=== PATIENT | male | born 1980 | race Caucasian/White ===

== ENCOUNTER 2021-06-12 17:06 | Emergency (ER) | payer BC, OTHER ==
--- NOTE | 2021-06-12 19:34 | ER ---
Nurse's Notes [facility] Name: Jesús Hebert Age: 40 yrs Sex: Male : 1980 Arrival Date: 06/12/2021 Time: 17:11 Bed Waiting Private MD: Diagnosis: Assessment: 06/12 18:24 Reassessment: Called to triage twice. No answer. Unable to locate patient. ss ED Course: 17:11 Patient arrived in ED. mr 17:13 Jesús Musa MD is Attending Physician. kdr Administered Medications: No medications were administered Outcome: 19:30 Eloped from waiting room. ss 19:30 unknown 19:33 Patient left the ED. Signatures: Jesús Musa MD MD [facility] Lili Post Shelby, RN RN ss
== END 2021-06-12 19:33 | disposition left against medical advice (07) ==
LOC: ER 17:06
DX: Z02.9 Encounter for administrative examinations, unspecified (principal)

== ENCOUNTER 2025-01-07 18:18 | Emergency (ER) | payer BC ==
[2025-01-07 20:14] LABS: Absolute Basophils 0.1 K/uL (0-0.5); Absolute Lymphocytes (CBC) 2.6 K/uL (0.7-4.9); Absolute Monocytes 0.4 K/uL (0.1-1.3); Absolute Neutrophil 2.5 K/uL (1.8-8.0); Basophils % 0.9 % (0-1.3); Eosinophils % 0.7 % (0-4.4); Hematocrit 44.4 % (39.6-49.0); Hemoglobin 15.1 g/dL (13.6-17.9); Lymphocytes % 45.8 % (15.3-44.8); MCH 30.1 pg (27.0-35.0); MCV 88.3 fL (80-100); MPV 7.5 fL (7.6-11.3); Monocytes % 7.9 % (3.3-12.3); Neutrophils % 44.7 % (41.7-73.7); Nucleated Red Blood Cells % 0.1 % (0-0); Platelets 242 thou/uL (152-406); RBC Red Blood Cell Count 5.02 M/uL (4.33-5.43); Red Cell Distribution Width 13.4 % (12.1-15.2)
[2025-01-07 20:24] LABS: PTT, Activated Partial Thromb 32.2 SECONDS (27.2-37.4); Protime INR 1.06
[2025-01-07 20:31] LABS: Albumin 4.1 g/dL (3.4-5.0); Albumin/Globulin Ratio 1.2 (1.1-1.8); Anion Gap 7.9 mEq/L (5.0-15.0); Bilirubin Total 0.5 mg/dL (0.2-1.0); Globulin 3.4 g/dL (2.3-3.5); Potassium 3.9 mEq/L (3.5-5.1); Protein, Total 7.5 g/dL (6.4-8.2)
--- NOTE | 2025-01-07 20:37 | RAD REPORT ---
EXAMINATION: CT ABDOMEN AND PELVIS WITH CONTRAST CLINICAL INDICATION: Abdominal pain TECHNIQUE: CT abdomen and pelvis was performed, after the administration of 100 cc Isovue-300.. Sagit tim and coronal reconstructions were obtained. One or more of the following dose reduction techniques were used: Automated exposure control, adjustment of the mA and kV according to patient si ze, and iterative reconstruction. Unless otherwise specified, incidental findings do not require dedicated imaging follow-up. [id number]. Oral contrast was not given which limits evaluation of bowel and appendix. COMPARISON: .None FINDINGS: The liver, pancreas, adrenals and left kidney unremarkable Small right renal cyst 1.1 cm low-density density lesion spleen Hounsfield unit 33. Diverticula stem from colon. Mild stranding adjacent to the sigmoid colon. No abscess. No free air. Normal appendix. Tiny umbilical hernia : IMPRESSION: Mild sigmoid diverticulitis 1.1 cm splenic lesion does not represent a simple cyst. Most likely it is benign. Follow-up ultrasoun d in 3 months recommended
--- NOTE | 2025-01-07 21:47 | EDPHYS ---
Physician Documentation [facility] Name: Jesús Hebert Age: 44 yrs Sex: Male : 1980 Arrival Date: 01/07/2025 Time: 18:18 Bed 11 Private MD: ED Physician Jose Alberto Perry HPI: 01/07 18:46 This 44 yrs old Male presents to ER via Ambulatory with complaints of Abdominal Pain. kb 18:46 Pt is a 44 year old male who presents for nausea and lower abd pain that started 3 days kb ago. States he had diverticulitis with a 1.4cm abscess on 12/27. Pt was transferred to [facility] and given zosyn Q 6 hours. States the abscess was too small for surgical intervention. Has repeat CT and labs scheduled for the end of the week, but pain returned and it seems similar to previous so he called his PCP and they recommended coming to ER for evaluation. . Historical: - Allergies: 18:29 No Known Allergies; hb - Immunization history:: Adult Immunizations up to date. - Infectious Disease History:: Denies. - Social history:: Smoking status: Patient denies any tobacco usage or history of. ROS: 18:46 Constitutional: As per HPI kb Exam: 18:46 Constitutional: This is a well developed, well nourished patient who is awake, alert, kb and in no acute distress. Head/Face: Normocephalic, atraumatic. ENT: Moist Mucous membranes Cardiovascular: Regular rate Respiratory: Respirations even and unlabored. No increased work of breathing. Talking in full sentences Skin: Warm, dry with normal turgor. Normal color. MS/ Extremity: Pulses equal, no cyanosis. Neurovascular intact. Full, normal range of motion. Neuro: Awake and alert, GCS 15, oriented to person, place, time, and situation. 18:46 Abdomen/GI: Inspection: abdomen appears normal, Bowel sounds: normal, Palpation: soft, in all quadrants, mild abdominal tenderness, in the right lower quadrant, moderate abdominal tenderness, in the left lower quadrant, Vital Signs: 18:27 BP 136 / 93; Pulse 88; Resp 16; Temp 98.6(O); Pulse Ox 100% on R/A; Weight 82.55 kg; hb Height 5 ft. 7 in. ; Pain 6/10; 20:30 BP 134 / 84; Pulse 78; Resp 16; Pulse Ox 98% ; me1 21:55 BP 132 / 91; Pulse 86; Resp 15; Temp 98.4; Pulse Ox 100% ; me1 18:27 Body Mass Index 28.50 (82.55 kg, 170.18 cm) hb 18:27 Pain Scale: Adult hb MDM: 18:23 Medical Screening Exam initiated kb 18:46 Data reviewed: vital signs, nurses notes. kb 21:44 Differential diagnosis: diverticulitis, non-specific abd pain. Historians other than sabnia the Patient: Spouse/Significant Other: . External Records Reviewed: Inpatient record: labs from [facility] reviewed on [facility] my chart. Outside ED record: CT report from [facility] reviewed. Counseling: I had a detailed discussion with the patient and/or guardian regarding the historical points, exam findings, and any diagnostic results supporting the discharge/admit diagnosis, lab results, radiology results, the need for outpatient follow up, a family practitioner, to return to the emergency department if symptoms worsen or persist or if there are any questions or concerns that arise at home. ED course: Diverticulitis improving, abscess resolved. Pt educated to continue antibiotics as prescribed and follow up with Dr Cartagena as planned. 01/07 18:33 Order name: Blood Culture Adult (2) kb 01/07 18:33 Order name: CBC with Diff; Complete Time: 20:30 kb 01/07 18:33 Order name: CMP; Complete Time: 20:34 kb 01/07 18:33 Order name: Lactate w/ 2H reflex if indic.; Complete Time: 20:35 kb 01/07 18:33 Order name: Protime (+inr); Complete Time: 20:30 kb 01/07 18:33 Order name: Ptt, Activated; Complete Time: 20:30 kb 01/07 18:33 Order name: CT Abd/Pelvis - IV Contrast Only; Complete Time: 20:41 kb 01/07 18:33 Order name: IV Saline Lock - Large Bore; Complete Time: 20:06 kb 01/07 18:33 Order name: Labs collected and sent; Complete Time: 20:06 kb 01/07 18:33 Order name: O2 Per Protocol; Complete Time: 20:06 kb 01/07 18:33 Order name: O2 Sat Monitoring; Complete Time: 20:06 kb 01/07 18:33 Order name: Vital Signs; Complete Time: 20:06 kb Administered Medications: No medications were administered Disposition Summary: 01/07/25 21:46 Discharge Ordered Notes: Location: Home kb Condition: Stable kb Diagnosis - Diverticulitis of intestine, part unspecified, without perforation or abscess kb without bleeding Followup: kb - With: Private Physician - When: 2 - 3 days - Reason: Recheck today's complaints, Continuance of care, Re-evaluation by your physician Followup: kb - With: Emergency Department - When: As needed - Reason: Worsening of condition Discharge Instructions: - Discharge Summary Sheet kb - Diverticulitis, [id number] kb Forms: - Medication Reconciliation Form kb - Antibiotic Education kb - Prescription Opioid Use kb - Patient Portal Instructions kb - Leadership Thank You Letter kb - Work release form me1 Signatures: Dispatcher [employer] Rosa Isela Rahmna, DOCUMENT CONTROL SUPERVISOR-C DOCUMENT CONTROL SUPERVISOR-Mary Lou James RN RN Corrections: (The following items were deleted from the chart) 18:34 18:34 BLOOD CULTURE*+BA.LAB.BRZ ordered. EDMS EDMS 18:34 18:34 CBC+H.LAB.BRZ ordered. EDMS EDMS 18:34 18:34 COMPREHENSIVE METABOLIC PANEL+C.LAB.BRZ ordered. EDMS EDMS 18:34 18:34 LACTATE+C.LAB.BRZ ordered. EDMS EDMS 18:34 18:34 PROTIME (+INR)+COAG.LAB.BRZ ordered. EDMS EDMS 18:34 18:34 PTT, ACTIVATED+COAG.LAB.BRZ ordered. EDMS EDMS
--- NOTE | 2025-01-07 21:47 | ER ---
Nurse's Notes [facility] Name: Jesús Hebert Age: 44 yrs Sex: Male : 1980 Arrival Date: 01/07/2025 Time: 18:18 Bed 11 Private MD: Diagnosis: Diverticulitis of intestine, part unspecified, without perforation or abscess without bleeding Presentation: 01/07 18:27 Chief complaint: Sent by Osiel Alfredo for abdominal pain. Hospitalized [facility] for hb diverticulitis and abscess on colon 3 weeks ago, still on ABX but feels like pain is getting worse. Coronavirus screen: At this time, the client does not indicate any symptoms associated with coronavirus-19. Ebola Screen: No symptoms or risks identified at this time. Initial Sepsis Screen: Does the patient meet any 2 criteria? No. Patient's initial sepsis screen is negative. Does the patient have a suspected source of infection? No. Patient's initial sepsis screen is negative. Risk Assessment: Do you want to hurt yourself or someone else? Patient reports no desire to harm self or others. Onset of symptoms was December 12, 2024. 18:27 Method Of Arrival: Ambulatory hb 18:27 Acuity: AIXA 3 hb Historical: - Allergies: 18:29 No Known Allergies; hb - Immunization history:: Adult Immunizations up to date. - Infectious Disease History:: Denies. - Social history:: Smoking status: Patient denies any tobacco usage or history of. Screenin:15 [facility] ED Fall Risk Assessment (Adult) History of falling in the last 3 months, me1 including since admission No falls in past 3 months (0 pts) Confusion or Disorientation No (0 pts) Intoxicated or Sedated No (0 pts) Impaired Gait No (0 pts) Mobility Assist Device Used No (0 pt) Altered Elimination No (0 pt) Score/Fall Risk Level 0 - 2 = Low Risk Maintained a safe environment, Provided non-skid footwear, Hourly rounding (assess needs \T\ fall precautionary measures) done. Abuse screen: Denies threats or abuse. Nutritional screening: No deficits noted. Tuberculosis screening: No symptoms or risk factors identified. Assessment: 19:15 General: Appears in no apparent distress. well groomed, well developed, well nourished, me1 Behavior is calm, cooperative, appropriate for age, Reports Sent by Osiel Alfredo for abdominal pain. Hospitalized [facility] for diverticulitis and abscess on colon 3 weeks ago, still on ABX but feels like pain is getting worse. Pain: Complains of pain in right lower quadrant and left lower quadrant Pain does not radiate. Pain currently is 5 out of 10 on a pain scale. Quality of pain is described as crampy, sharp, Pain began gradually, Is continuous. Neuro: Level of Consciousness is awake, alert, obeys commands, Oriented to person, place, time, situation, Appropriate for age. Cardiovascular: Patient's skin is warm and dry. Respiratory: Airway is patent Respiratory effort is even, unlabored, Respiratory pattern is regular, symmetrical. GI: Bowel sounds present X 4 quads. Abd is soft X 4 quads Reports lower abdominal pain. : No signs and/or symptoms were reported regarding the genitourinary system. EENT: No signs and/or symptoms were reported regarding the EENT system. Derm: Skin is intact, is healthy with good turgor, Skin is pink, warm \T\ dry. Musculoskeletal: No signs and/or symptoms reported regarding the musculoskeletal system. Vital Signs: 18:27 BP 136 / 93; Pulse 88; Resp 16; Temp 98.6(O); Pulse Ox 100% on R/A; Weight 82.55 kg; hb Height 5 ft. 7 in. ; Pain 6/10; 20:30 BP 134 / 84; Pulse 78; Resp 16; Pulse Ox 98% ; me1 21:55 BP 132 / 91; Pulse 86; Resp 15; Temp 98.4; Pulse Ox 100% ; me1 18:27 Body Mass Index 28.50 (82.55 kg, 170.18 cm) hb 18:27 Pain Scale: Adult hb ED Course: 18:20 Patient arrived in ED. al6 18:23 Rosa Isela Ventura [facility]C [facility] kb 18:23 Jose Alberto Perry MD is Attending Physician. kb 18:29 Triage completed. hb 18:30 Arm band placed on. hb 19:09 Radiology exam delayed due to lab results not completed at this time. IV insertion jc4 attempt and/or patient not having appropriate IV at this time. 19:11 Kimberly Cota, RN is Primary Nurse. me1 19:15 Patient has correct armband on for positive identification. Bed in low position. Call me1 light in reach. Side rails up X 1. Provided Education on: POC. Verbalized understanding. Client placed on continuous cardiac and pulse oximetry monitoring. NIBP monitoring applied. Pulse ox on. NIBP on. 19:15 No provider procedures requiring assistance completed. me1 20:00 Initial lab(s) drawn, by me, sent to lab. First set of blood cultures drawn by me. me1 20:05 Inserted saline lock: 22 gauge in left antecubital area, using aseptic technique. me1 20:06 CBC with Diff Sent. me1 20:06 CMP Sent. me1 20:06 Lactate w/ 2H reflex if indic. Sent. me1 20:06 Protime (+inr) Sent. me1 20:06 Ptt, Activated Sent. me1 20:11 Second set of blood cultures drawn by me. me1 20:15 CT Abd/Pelvis - IV Contrast Only In Process Unspecified. EDMS 21:55 IV discontinued, intact, bleeding controlled, No redness/swelling at site. Pressure id1 dressing applied. Administered Medications: No medications were administered Medication: 19:15 VIS not applicable for this client. me1 Outcome: 21:46 Discharge ordered by . kb 21:55 Discharged to home ambulatory, with significant other, me1 21:55 Condition: stable 21:55 Discharge instructions given to patient, significant other, Instructed on discharge instructions, follow up and referral plans. Demonstrated understanding of instructions, follow-up care, 21:56 Patient left the ED. id1 Signatures: Dispatcher [employer] EDNY Rosa Isela Ventura, RIGGING SLINGER-C RIGGING SLINGER-Ckb Mary Lou Infante RN RN Kimberly Cota RN RN id1 Eric Solano [email or web address] Tenisha Singleton6 Corrections: (The following items were deleted from the chart) 18:32 18:27 Chief complaint: Sent by Osiel Alfredo for abdominal pain. Hospitalized [facility] for hb diverticulitis and abscess on colon 3 weeks ago, on ABX but feels like pain is getting worse. hb 20:11 18:27 Chief complaint: Sent by Osiel Alfredo for abdominal pain. Hospitalized [facility] for me1 diverticulitis and abscess on colon 3 weeks ago, still on ABX but feels like pain is getting worse. hb
[2025-01-07 22:43] VITALS: BP 132/91; TEMP 98.4; O2SAT 100
== END 2025-01-07 21:56 | disposition home or self-care (01) ==
LOC: ER 18:18
DX: K57.32 Diverticulitis of large intestine without perforation or abscess without bleeding (principal)
CPT/HCPCS: 87040 ×2; 85025; 36415; 85610; 82565; 83605; 85730; 80053; 74177; 99284; Q9967

== ENCOUNTER 2025-08-29 23:24 | Emergency (ER) | payer BC ==
[2025-08-29] MEDS ORDERED: ONDANSETRON 4 MG/2 ML VIAL ONE (23:35)
[2025-08-29] MEDS ORDERED: KETOROLAC 30 MG/ML INJ ONE (23:35)
[2025-08-29] MEDS ORDERED: NA CHLORIDE 0.9% 1,000 ML ONE (23:36)
[2025-08-30 00:50] LABS: Absolute Lymphocytes (CBC) 2.8 K/uL (0.7-4.9); Hematocrit 43.9 % (39.6-49.0); Hemoglobin 15.2 g/dL (13.6-17.9); MCH 30.0 pg (27.0-35.0); MCHC 34.5 g/dL (32.0-36.0); MCV 86.8 fL (80-100); MPV 7.9 fL (7.6-11.3); Nucleated RBC Absolute Count 0.0 (0-0); Nucleated Red Blood Cells % 0.0 % (0-0); RBC Red Blood Cell Count 5.06 M/uL (4.33-5.43); White Blood Count 5.90 thou/uL (4.3-10.9)
[2025-08-30 01:24] LABS: ALT/SGPT 19.0 U/L (16-61); AST/SGOT 18.0 U/L (15-37); Albumin 4.1 g/dL (3.4-5.0); Albumin/Globulin Ratio 1.1 (1.1-1.8); Alkaline Phosphatase 72.0 U/L (45-117); Anion Gap 11.7 mEq/L (5.0-15.0); BUN Blood Urea Nitrogen 9.0 mg/dL (7-18); Globulin 3.8 g/dL (2.3-3.5); Glucose Level 82.0 mg/dL (74-106); Lipase 27.0 U/L (13-75); Potassium 3.7 mEq/L (3.5-5.1)
--- NOTE | 2025-08-30 03:32 | RAD REPORT ---
CT ABDOMEN PELVIS WITH IV CONTRAST Exam date: August 30, 2025 Comparison: CT abdomen pelvis April 25, 2025 Indication: Abdominal pain Technique: Multiple helical axial images were obtained through the abdomen and pelvis using intravenous contrast . Coronal and sagittal reformatted images were obtained. All CT scans at this facility use dose modulation, iterative reconstruction, and/or weight-based dosi ng when appropriate to reduce radiation dose to as low as reasonably achievable. Findings: Lung bases: [Appear unremarkable]. Liver: [There is low attenuation suggesting fatty changes.] Gallbladder/biliary: [Appears unremarkable] Pancreas: [Unremarkable. No evidence of ductal enlargement.] Spleen: A 0.8 cm hypodense structure in the spleen is unchanged. No splenomegaly. Adrenals: Unremarkable. Kidneys and ureters: [No evidence of hydronephrosis. Normal enhancement.] A few cysts in the right kidney noted measuring up to 1.2 cm. Bladder: Unremarkable. Pelvic organs: Unremarkable. Bowel: [Colonic diverticula are present. No evidence of bowel obstruction. No bowel wall thickening .] Appendix appears unremarkable. Vasculature: Mild aortic atherosclerosis noted. Peritoneum: No free air. No significant free fluid. Lymph nodes: Unremarkable. Soft tissues: Unremarkable. Bones: Disc space narrowing and mild osteophyte formation at L5-S1 noted. Impression: 1. No evidence for an acute process within the abdomen or pelvis. 2. Hepatic steatosis. 3. Colonic diverticulosis. Electronically signed by: Eric Palma MD 08/30/2025 03:26 AM CDT Due to temporary technical issues with the [employer] reporting system, reports are being salo d by the in-house radiologist without review as a courtesy to ensure prompt reporting the interpreting radiologist is fully responsible for the content of the report. Transcribed Date/Time: 08/30/2025 3:32 AM
--- NOTE | 2025-08-30 03:51 | ER ---
Nurse's Notes [facility] Name: Jesús Hebert Age: 45 yrs Sex: Male : 1980 Arrival Date: 08/29/2025 Time: 23:24 Bed 17 Private MD: Diagnosis: Diverticulosis of intestine, part unspecified, without perforation or abscess without bleeding Presentation: 08/29 23:29 Chief complaint: Patient states: LEFT LOWER QUADRANT ABDOMINAL PAIN AND NAUSEA. ha1 23:29 Coronavirus screen: Client denies travel out of the [place] in the last 14 days. Ebola ha1 Screen: No symptoms or risks identified at this time. Initial Sepsis Screen: Does the patient meet any 2 criteria? No. Patient's initial sepsis screen is negative. Does the patient have a suspected source of infection? No. Patient's initial sepsis screen is negative. Risk Assessment: Do you want to hurt yourself or someone else? Patient reports no desire to harm self or others. Onset of symptoms was August 29, 2025. 23:29 Method Of Arrival: Ambulatory ha1 23:29 Acuity: AIXA 3 ha1 Triage Assessment: 23:42 General: Appears uncomfortable, Behavior is calm, cooperative. Pain: Complains of pain ha1 in left lower quadrant Pain currently is 5 out of 10 on a pain scale. Quality of pain is described as aching. Neuro: Level of Consciousness is awake, alert, obeys commands, Oriented to person, place, time, situation. Cardiovascular: Capillary refill < 3 seconds Patient's skin is warm and dry. Respiratory: Airway is patent Respiratory effort is even, unlabored, Respiratory pattern is regular, symmetrical. GI: Abdomen is round Reports lower abdominal pain, nausea. : No signs and/or symptoms were reported regarding the genitourinary system. Derm: Skin is normal. Musculoskeletal: Circulation, motion, and sensation intact. Range of motion: intact in all extremities. Historical: - Allergies: 23:42 No Known Allergies; ha1 - PMHx: 23:42 Diverticulitis; ha1 - PSHx: 23:42 Vasectomy; ha1 - Immunization history:: Adult Immunizations up to date. - Infectious Disease History:: Denies. - Social history:: Smoking status: Patient denies any tobacco usage or history of. Screenin/31 01:16 [facility] ED Fall Risk Assessment (Adult) History of falling in the last 3 months, tb4 including since admission No falls in past 3 months (0 pts) Confusion or Disorientation No (0 pts) Intoxicated or Sedated No (0 pts) Impaired Gait No (0 pts) Mobility Assist Device Used No (0 pt) Altered Elimination No (0 pt) Score/Fall Risk Level 0 - 2 = Low Risk Maintained a safe environment. Abuse screen: Denies threats or abuse. Denies injuries from another. Nutritional screening: No deficits noted. Tuberculosis screening: No symptoms or risk factors identified. Assessment: 00:51 Reassessment: Patient walked to restroom. tb4 02:43 General: Appears comfortable, Behavior is calm, cooperative. Pain: Complains of pain in tb4 left lower quadrant Pain does not radiate. Pain currently is 2 out of 10 on a pain scale. Quality of pain is described as aching, Pain began gradually, 2-3 days ago. Neuro: Level of Consciousness is awake, alert, obeys commands, Oriented to person, place, time, situation, Pantographer are equal bilaterally Gait is steady, Speech is normal. Cardiovascular: Patient's skin is warm and dry. Respiratory: Airway is patent Respiratory effort is even, unlabored, Respiratory pattern is regular, symmetrical. GI: Bowel sounds present X 4 quads. Abd is soft Abdomen is tender to palpation in left lower quadrant Reports nausea, Pain is 7 out of 10 on a pain scale. : No deficits noted. No signs and/or symptoms were reported regarding the genitourinary system. EENT: No deficits noted. No signs and/or symptoms were reported regarding the EENT system. Derm: No deficits noted. No signs and/or symptoms reported regarding the dermatologic system. Skin is intact, is healthy with good turgor, Skin is dry, Skin is normal. Musculoskeletal: No deficits noted. No signs and/or symptoms reported regarding the musculoskeletal system. Circulation, motion, and sensation intact. Range of motion: intact in all extremities. Vital Signs: 08/29 23:29 BP 123 / 78; Pulse 65; Resp 18 S; Temp 97.6; Pulse Ox 100% on R/A; Weight 77.11 kg; ha1 Height 5 ft. 7 in. ; Pain 5/10; 23:49 BP 117 / 75; Pulse 74; Resp 20; Pulse Ox 99% on R/A; tb4 08/30 00:54 BP 122 / 79; Pulse 64; Resp 19; Pulse Ox 100% on R/A; tb4 02:00 BP 138 / 75; Pulse 82; Resp 20; Temp 98.4(O); Pulse Ox 98% on R/A; Pain 3/10; tb4 03:00 BP 129 / 61; Pulse 77; Resp 18; Pulse Ox 98% on R/A; tb4 04:00 BP 131 / 72; Pulse 81; Resp 17; Pulse Ox 100% on R/A; Pain 0/10; tb4 04:32 BP 133 / 71; Pulse 89; Resp 20; Pulse Ox 99% on R/A; Pain 0/10; tb4 08/29 23:29 Body Mass Index 26.63 (77.11 kg, 170.18 cm) ha1 08/29 23:29 Pain Scale: Adult ha1 02:00 Pain Scale: Adult tb4 04:00 Pain Scale: Adult tb4 04:32 Pain Scale: Adult tb4 ED Course: 08/29 23:27 Patient arrived in ED. im 23:31 Jose Alberto Blanco PA-C is PHCP. cp 23:31 Cam Gomez MD is Attending Physician. cp 23:42 Triage completed. ha1 08/30 00:19 Inserted saline lock: 20 gauge in left antecubital area, using aseptic technique. Blood tb4 collected. Flushed with 10 mL NS. 01:17 Patient has correct armband on for positive identification. Bed in low position. Call tb4 light in reach. Side rails up X 1. Adult w/ patient. Client placed on continuous cardiac and pulse oximetry monitoring. NIBP monitoring applied. Pulse ox on. Door closed. Lights dimmed. 01:17 No provider procedures requiring assistance completed. Initial lab(s) drawn, by ED tb4 staff, sent to lab. 01:21 Arm band placed on right wrist. tb4 01:49 CT Abd/Pelvis - IV Contrast Only In Process Unspecified. EDMS 03:50 Meena Cartagena MD is Referral Physician. cp 04:23 Provided Education on: Take medication as prescribed an follow up with primary care. tb4 04:30 IV discontinued, intact, bleeding controlled, No redness/swelling at site. Pressure tb4 dressing applied. Administered Medications: 00:24 Drug: NS 0.9% IV 1000 ml IV at 1 bolus Per protocol; to be given as a bolus over 60 tb4 minutes Route: IV; Rate: 1 bolus; Site: left antecubital; 02:42 Follow up: Response: No adverse reaction; IV Status: Completed infusion tb4 00:25 Drug: TORadol - Ketorolac IVP 15 mg IVP once Route: IVP; Site: left antecubital; tb4 02:42 Follow up: Response: No adverse reaction; Pain is decreased tb4 00:25 Drug: Ondansetron IVP 4 mg IVP once; over 2 minutes Route: IVP; Site: left antecubital; tb4 02:43 Follow up: Response: No adverse reaction; Nausea is decreased tb4 04:20 Drug: Ciprofloxacin PO 500 mg PO once Route: PO; tb4 04:30 Follow up: Response: No adverse reaction ha1 04:52 Follow up: Response: No adverse reaction tb4 04:20 Drug: metroNIDAZOLE PO 500 mg PO once Route: PO; tb4 04:30 Follow up: Response: No adverse reaction ha1 04:52 Follow up: Response: No adverse reaction tb4 Medication: 01:16 VIS not applicable for this client. tb4 Outcome: 03:50 Discharge ordered by MD. cp 04:38 Discharged to home ambulatory, ha1 04:38 Condition: stable 04:38 Discharge instructions given to patient, Instructed on discharge instructions, follow up and referral plans. medication usage, Demonstrated understanding of instructions, follow-up care, medications, Prescriptions given X 3, 04:38 Patient left the ED. ha1 Signatures: Dispatcher [employer] EDNY Jose Alberto Blanco PA-C PA-C cp Ayala, Heidy RN RN ha1 Sarah Pace Terri RN RN tb4 Corrections: (The following items were deleted from the chart) 08/29 23:43 23:29 Chief complaint: Patient states: LEFT LOWER QUADRANT ABDOMINAL PAIN ha1 ha1 08/30 03:25 02:42 Response: No adverse reaction; Pain is decreased tb4 tb4 03:28 03:26 Discharged to home ambulatory, tb4 tb4 03:28 03:26 Condition: stable tb4 tb4 03:28 03:26 Discharge instructions given to patient, Instructed on discharge instructions, tb4 follow up and referral plans. Demonstrated understanding of instructions, follow-up care, medications, Prescriptions given X 2, tb4 04:39 04:38 Discharge instructions given to patient, Instructed on discharge instructions, ha1 follow up and referral plans. medication usage, Demonstrated understanding of instructions, follow-up care, medications, Prescriptions given X 2, ha1
--- NOTE | 2025-08-30 03:51 | EDPHYS ---
Physician Documentation [facility] Name: Jesús Hebert Age: 45 yrs Sex: Male : 1980 Arrival Date: 08/29/2025 Time: 23:24 Bed 17 Private MD: ED Physician Cam Gomez HPI: 08/30 00:00 This 45 yrs old Other Race Male presents to ER via Ambulatory with complaints of cp Abdominal Pain. 00:00 The patient presents with abdominal pain in the lower abdomen. Onset: The cp symptoms/episode began/occurred last week, waxing and waning, now persistent over past several days. Associated signs and symptoms: Pertinent negatives: constipation, diarrhea, fever, shortness of breath, testicular pain. Severity of pain: in the emergency department the pain is unchanged despite home interventions. PMHX significant for diverticulitis. Historical: - Allergies: 08/29 23:42 No Known Allergies; ha1 - PMHx: 23:42 Diverticulitis; ha1 - PSHx: 23:42 Vasectomy; ha1 - Immunization history:: Adult Immunizations up to date. - Infectious Disease History:: Denies. - Social history:: Smoking status: Patient denies any tobacco usage or history of. ROS: 08/30 00:05 Constitutional: Negative for body aches, chills, fever, poor PO intake, cp 00:05 Eyes: Negative for injury, pain, redness, and discharge, cp 00:05 Cardiovascular: Negative for chest pain, palpitations, 00:05 Respiratory: Negative for cough, shortness of breath, wheezing, 00:05 Abdomen/GI: Positive for abdominal pain, nausea, 00:05 Back: Negative for injury or acute deformity, decreased range of motion, 00:05 : Negative for urinary symptoms, testicular pain 00:05 All other systems are negative, Exam: 00:05 Head/Face: Normocephalic, atraumatic. cp 00:05 Constitutional: The patient appears in no acute distress, alert, awake, non-toxic, well developed, well nourished, uncomfortable, 00:05 Eyes: Periorbital structures: appear normal, Conjunctiva: normal, no exudate, no injection, Sclera: no appreciated abnormality, Lids and lashes: appear normal, bilaterally, 00:05 ENT: External ear(s): are unremarkable, Nose: is normal, Mouth: Lips: moist, Oral mucosa: moist, Posterior pharynx: Airway: no evidence of obstruction, patent, 00:05 Chest/axilla: Inspection: normal, 00:05 Cardiovascular: Rate: normal, Rhythm: regular, 00:05 Respiratory: the patient does not display signs of respiratory distress, Respirations: normal, no use of accessory muscles, no retractions, labored breathing, is not present, Breath sounds: are clear throughout, no decreased breath sounds, no stridor, no wheezing, 00:05 Abdomen/GI: Inspection: abdomen appears normal, Bowel sounds: active, all quadrants, Palpation: soft, in all quadrants, moderate abdominal tenderness, in the right lower quadrant and left lower quadrant, rebound tenderness, is not appreciated, involuntary guarding, is not appreciated, 00:05 Back: pain, is absent, ROM is normal, 00:05 Neuro: Orientation: to person, place \T\ time. Mentation: is normal, Vital Signs: 08/29 23:29 BP 123 / 78; Pulse 65; Resp 18 S; Temp 97.6; Pulse Ox 100% on R/A; Weight 77.11 kg; ha1 Height 5 ft. 7 in. ; Pain 5/10; 23:49 BP 117 / 75; Pulse 74; Resp 20; Pulse Ox 99% on R/A; tb4 08/30 00:54 BP 122 / 79; Pulse 64; Resp 19; Pulse Ox 100% on R/A; tb4 02:00 BP 138 / 75; Pulse 82; Resp 20; Temp 98.4(O); Pulse Ox 98% on R/A; Pain 3/10; tb4 03:00 BP 129 / 61; Pulse 77; Resp 18; Pulse Ox 98% on R/A; tb4 04:00 BP 131 / 72; Pulse 81; Resp 17; Pulse Ox 100% on R/A; Pain 0/10; tb4 04:32 BP 133 / 71; Pulse 89; Resp 20; Pulse Ox 99% on R/A; Pain 0/10; tb4 08/29 23:29 Body Mass Index 26.63 (77.11 kg, 170.18 cm) [facility] 08/29 23:29 Pain Scale: Adult ha1 02:00 Pain Scale: Adult tb4 04:00 Pain Scale: Adult tb4 04:32 Pain Scale: Adult tb4 MDM: 08/29 23:31 Medical Screening Exam initiated cp 08/30 00:00 Differential diagnosis: appendicitis, bowel obstruction, cholecystitis, Cholelithiasis, cp diverticulitis, gastritis, non-specific abd pain, Pyelonephritis, Testicular Torsion, Ureterolithiasis, urinary tract infection. 03:40 Special discussion: Based on the patient's Hx, exam, and Dx evaluation, there is no cp indication for emergent surgery or inpatient Tx. It is understood by the patient/guardian that if the Sx's persist or worsen they need to return immediately for re-evaluation. 03:50 Data reviewed: vital signs, nurses notes, lab test result(s), radiologic studies, CT cp scan. 08/29 23:42 Order name: CBC with Diff; Complete Time: 01:28 cp 08/30 01:29 Interpretation: Normal except: MEEK% 41.0; LYM% 46.7. 08/29 23:42 Order name: CMP; Complete Time: cp 08/30 01:29 Interpretation: Normal except: GFR 89; GLOB 3.8. cp 08/29 23:42 Order name: Lipase; Complete Time: 01:28 cp 08/30 01:29 Interpretation: Reviewed. 08/29 23:42 Order name: CT Abd/Pelvis - IV Contrast Only 08/30 03:40 Interpretation: Report reviewed. 08/29 23:42 Order name: IV Saline Lock; Complete Time: 00:25 cp 08/29 23:42 Order name: Labs collected and sent; Complete Time: 00:25 cp Administered Medications: 00:24 Drug: NS 0.9% IV 1000 ml IV at 1 bolus Per protocol; to be given as a bolus over 60 tb4 minutes Route: IV; Rate: 1 bolus; Site: left antecubital; 02:42 Follow up: Response: No adverse reaction; IV Status: Completed infusion tb4 00:25 Drug: TORadol - Ketorolac IVP 15 mg IVP once Route: IVP; Site: left antecubital; tb4 02:42 Follow up: Response: No adverse reaction; Pain is decreased tb4 00:25 Drug: Ondansetron IVP 4 mg IVP once; over 2 minutes Route: IVP; Site: left antecubital; tb4 02:43 Follow up: Response: No adverse reaction; Nausea is decreased tb4 04:20 Drug: Ciprofloxacin PO 500 mg PO once Route: PO; tb4 04:30 Follow up: Response: No adverse reaction ha1 04:52 Follow up: Response: No adverse reaction tb4 04:20 Drug: metroNIDAZOLE PO 500 mg PO once Route: PO; tb4 04:30 Follow up: Response: No adverse reaction ha1 04:52 Follow up: Response: No adverse reaction tb4 Disposition: 22:30 Co-signature as Attending Physician, Cam Gomez MD I agree with the assessment sp4 and plan of care. I reviewed the patient's care provided by the Advanced Practice Provider and agree with the diagnosis and treatment plan. Disposition Summary: 08/30/25 03:50 Discharge Ordered Notes: Location: Home cp Problem: new cp Symptoms: have improved cp Condition: Stable cp Diagnosis - Diverticulosis of intestine, part unspecified, without perforation or abscess cp without bleeding Followup: cp - With: Meena Cartagena MD - When: 5 - 6 days - Reason: Recheck today's complaints Discharge Instructions: - Discharge Summary Sheet cp - Abdominal Pain, Adult cp - Diverticulosis cp Forms: - Medication Reconciliation Form cp - Antibiotic Education cp - Prescription Opioid Use cp - Patient Portal Instructions cp - Leadership Thank You Letter cp - Work release form ha1 Prescriptions: - Cipro 500 mg Oral Tablet - take 1 tablet ORAL route every 12 hours for 10 days; 20 tablet; Refills: 0, cp Product Selection Permitted - Zofran 4 mg Oral Tablet - take 1 tablet ORAL route every 12 hours As needed; 20 tablet; Refills: 0, cp Product Selection Permitted - Metronidazole 500 mg Oral Tablet - take 1 tablet ORAL route every 8 hours; 30 tablet; Refills: 0, Product cp Selection Permitted - dicyclomine 20 mg Oral tablet - take 1 tablet ORAL route 4 times per day; 30 tablet; Refills: 0, Product cp Selection Permitted Signatures: Dispatcher [employer] [facility] Jose Alberto Blanco PA-C PA-C cp Ayala, Heidy RN RN ha1 Cam Gomez MD MD sp4 Carol Chairez RN RN tb4 Corrections: (The following items were deleted from the chart) 22:27 04:16 This 45 yrs old Other Race Male presents to ER via Ambulatory with complaints of cp Abdominal Pain. sp4
[2025-08-30] MEDS ORDERED: CIPROFLOXACIN HCL 500 MG TAB ONE (04:07)
[2025-08-30 05:37] VITALS: TEMP 98.4
[2025-08-30 05:40] VITALS: BP 131/72; O2SAT 100
== END 2025-08-30 04:38 | disposition home or self-care (01) ==
LOC: ER 23:24
DX: K57.30 Diverticulosis of large intestine without perforation or abscess without bleeding (principal)
CPT/HCPCS: 96361; 85025; 36415; 83690; 80053; 74177; 96375; 96374; 99284; Q9967; J1885; J2405; J7030